=== PATIENT | male | born 1955 | race Caucasian/White ===

== ENCOUNTER 2021-03-04 04:40 | Emergency (ER) | payer MEDICARE ==
[2021-03-04] MEDS ORDERED: TOPICAL SKIN ADHESIVE 1 EACH AMP TOPICAL STA (04:45)
[2021-03-04 04:49] VITALS: BP 158/95; PULSE 92; RESP 18; TEMP 98
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
== END 2021-03-04 05:24 | disposition home or self-care (01) ==
LOC: EC 04:40
DX: S61.011A Laceration without foreign body of right thumb without damage to nail, initial encounter (principal); F17.200 Nicotine dependence, unspecified, uncomplicated; J45.909 Unspecified asthma, uncomplicated; X78.9XXA Intentional self-harm by unspecified sharp object, initial encounter; Y92.149 Unspecified place in prison as the place of occurrence of the external cause
CPT/HCPCS: 12001; 99282